=== PATIENT | female | born 1985 | race Caucasian/White ===

== ENCOUNTER → 2017-04-08 | Outpatient (CLI) | payer OTHER ==
[2017-04-08 15:55] LABS: URINE APPEARANCE CLEAR (CLEAR); URINE BILIRUBIN NEG (NEG); URINE COLOR YELLOW; URINE NITRITE POS (NEG); URINE PH 7.5 (4.5-7.5); URINE SPECIFIC GRAVITY 1.022 (1.000-1.030); UROBILINOGEN NEG (NEG)
[2017-04-08 16:08] LABS: MANUAL MICROSCOPIC REQUIRED? NO; REVIEW REQ? NO
== END | disposition home or self-care (01) ==
LOC: C.LABSPEC 13:12
PROVIDERS: ATTEND Obstetrics & Gynecology
DX: Z34.01 Encounter for supervision of normal first pregnancy, first trimester (principal)

== ENCOUNTER → 2017-04-14 | Outpatient (CLI) | payer OTHER ==
[2017-04-14 12:14] LABS: BASO % 0.1 %; BASO ABS # 0.01 K/uL (0-0.2); COMPLETE YES; EOS % 1.3 %; HEMATOCRIT 37.4 % (37-47); IG% 0.3 %; LYMPH % 23.5 %; LYMPH ABS # 1.82 K/uL (1.2-3.4); MEAN CELL VOLUME 86.2 fL (80-100); MEAN CORPUSCULAR HGB CONC 33.7 g/dl (32-36); MEAN PLATELET VOLUME 11.5 fL (7.4-10.4); MONO % 5.2 %; NEUT % 69.6 %; PLATELET COUNT 240 K/uL (130-400); RED BLOOD COUNT 4.34 M/uL (4.2-5.4); WHITE BLOOD COUNT 7.76 K/uL (4.8-10.8)
[2017-04-16 22:32] LABS: CHLAMYDIA TRACH RNA*** NOT DETECTED (NOT DETECTED); GC (NEIS GONORRHOEAE)RNA** NOT DETECTED (NOT DETECTED)
== END | disposition home or self-care (01) ==
LOC: C.LAB1850 10:13
PROVIDERS: ATTEND Obstetrics & Gynecology
DX: Z34.01 Encounter for supervision of normal first pregnancy, first trimester (principal)

== ENCOUNTER → 2017-06-25 | Outpatient (CLI) | payer OTHER | END | disposition home or self-care (01) | LOC: C.LABSPEC 17:39 | PROVIDERS: ATTEND Obstetrics & Gynecology | DX: O23.31 Infections of other parts of urinary tract in pregnancy, first trimester (principal); Z3A.00 Weeks of gestation of pregnancy not specified ==

== ENCOUNTER → 2017-08-13 | Outpatient (CLI) | payer OTHER ==
[2017-08-13 12:15] LABS: HEMATOCRIT 35.3 % (37-47); HEMOGLOBIN 11.6 g/dL (12.0-16.0)
== END | disposition home or self-care (01) ==
LOC: C.LAB1850 09:58
PROVIDERS: ATTEND Obstetrics & Gynecology
DX: Z34.03 Encounter for supervision of normal first pregnancy, third trimester (principal); Z3A.00 Weeks of gestation of pregnancy not specified

== ENCOUNTER → 2017-10-11 | Outpatient (CLI) | payer OTHER ==
[2017-10-11 17:32] LABS: HEMATOCRIT 36.1 % (37-47); HEMOGLOBIN 11.9 g/dL (12.0-16.0); MEAN CELL VOLUME 88.5 fL (80-100); MEAN CORPUSCULAR HEMOGLOBIN 29.2 pg (25-34); PLATELET COUNT 149 K/uL (130-400); RED CELL DISTRIBUTION WIDTH CV 14.4 % (11.5-14.5); RED CELL DISTRIBUTION WIDTH SD 46.8 fL (36.4-46.3); WHITE BLOOD COUNT 9.27 K/uL (4.8-10.8)
[2017-10-11 17:53] LABS: ALBUMIN 2.5 gm/dl (3.4-5.0); ALKALINE PHOSPHATASE 126 U/L (45-117); ALT/SGPT 12 U/L (12-78); AST/SGOT 8 U/L (15-37); TOTAL PROTEIN 6.4 gm/dl (6.4-8.2); URIC ACID 5.1 mg/dl (2.6-7.2)
== END | disposition home or self-care (01) ==
LOC: C.LAB 16:16
PROVIDERS: ATTEND Obstetrics & Gynecology
DX: O26.899 Other specified pregnancy related conditions, unspecified trimester (principal)

== ENCOUNTER 2017-10-15 17:20 | Outpatient (CLI) | payer OTHER ==
[2017-10-15] MEDS ORDERED: ACETAMINOPHEN 325 MG TAB PO PRN (18:15)
[2017-10-15 18:44] LABS: BASO % 0.1 %; BASO ABS # 0.01 K/uL (0-0.2); EOS % 0.9 %; EOS ABS # 0.08 K/uL (0-0.5); HEMATOCRIT 36.1 % (37-47); HEMOGLOBIN 12.2 g/dL (12.0-16.0); IG# 0.02 K/uL (0.00-0.02); LYMPH % 26.8 %; LYMPH ABS # 2.29 K/uL (1.2-3.4); MEAN CELL VOLUME 87.8 fL (80-100); MEAN CORPUSCULAR HEMOGLOBIN 29.7 pg (25-34); MEAN CORPUSCULAR HGB CONC 33.8 g/dl (32-36); MEAN PLATELET VOLUME 12.8 fL (7.4-10.4); MONO % 5.2 %; MONO ABS # 0.44 K/uL (0.11-0.59); NEUT % 66.8 %; NEUT ABS # 5.69 K/uL (1.4-6.5); PLATELET COUNT 138 K/uL (130-400); RED CELL DISTRIBUTION WIDTH CV 14.5 % (11.5-14.5); RED CELL DISTRIBUTION WIDTH SD 46.7 fL (36.4-46.3); WHITE BLOOD COUNT 8.53 K/uL (4.8-10.8)
[2017-10-15 19:10] LABS: ALBUMIN 2.6 gm/dl (3.4-5.0); ALT/SGPT 10 U/L (12-78); BLOOD UREA NITROGEN 12 mg/dl (7-18); CALCIUM 8.6 mg/dl (8.5-10.1); CARBON DIOXIDE 20 mmol/L (21-32); CREATININE 0.58 mg/dl (0.60-1.20); GLUCOSE 67 mg/dl (70-99); POTASSIUM 3.8 mmol/L (3.5-5.1); SODIUM 137 mmol/L (136-145)
[2017-10-15 19:13] LABS: ALKALINE PHOSPHATASE 137 U/L (45-117); AST/SGOT 7 U/L (15-37); TOTAL PROTEIN 6.7 gm/dl (6.4-8.2)
[2017-10-15] MEDS ORDERED: PATIENT'S ALLERGY INFO NEEDS ENTERED SCH (19:30)
[2017-10-15] MEDS ORDERED: SODIUM CHLORIDE 0.9% 1000ML 1,000 ML IV SCH (20:00)
== END 2017-10-15 20:09 | disposition home or self-care (01) ==
LOC: C.LD 17:20 → C.OPB 17:20
PROVIDERS: ATTEND Obstetrics & Gynecology
DX: O13.3 Gestational [pregnancy-induced] hypertension without significant proteinuria, third trimester (principal); O99.213 Obesity complicating pregnancy, third trimester; E66.9 Obesity, unspecified; Z22.330 Carrier of Group B streptococcus; Z3A.36 36 weeks gestation of pregnancy

== ENCOUNTER 2021-01-07 05:40 | Inpatient (IN) ==
--- NOTE | 2021-01-03 11:27 | PAT Medication Instructions ---
Medication Instructions Date of Service January 03, 2021 Home Medications prenat.vits,guru,chp-vbfi-ruils 1 tab PO QAM acetaminophen [Tylenol] 325 mg PO QID PRN aspirin [Aspir-81] 81 mg PO QAM ASK your surgeon for instructions aspirin [Aspir-81] 81 mg PO QAM DO NOT take the morning of surgery prenat.vits,guru,tib-rjeq-gjuxu 1 tab PO QAM acetaminophen [Tylenol] 325 mg PO QID PRN Other Notes NOTHING TO EAT OR DRINK AFTER MIDNIGHT. If you have any questions please call us at [phone] or [phone] or [phone] or [phone]
--- NOTE | 2021-01-04 10:12 | Anesthesiology Consultation ---
Date of Service January 04, 2021 Assessment & Plan (1) Encounter for pre-operative examination: COVID Status: As of 01/04 assessment, patient denies travel to endemic area, known exposure/sick contacts, or symptoms of COVID19. Patient advised to adhere to social distancing guidelines, wear a mask in public and avoid large crowds or unnecessary travel in the 2 weeks leading up to surgery. Preoperative COVID19 testing completed on 01/01/2021, results negative. Patient encouraged to b e extra cautious/conscientious with COVID precautions between COVID testing and surgery. Pt is not vaccinated for COVID. Chart Review Chart Review: Acceptable Risk for Surgery and Patient NOT seen in Pre Admission Testing Teaching & Discussion Instructed NPO after midnight before surgery, except medications with 15 cc of water. Medication instructions provided according to the PAT guidelines. History Surgery Operation Date: 01/07/21 07:30 Proposed Procedures p Section - Alyssa Cortes MD, FACOG Height/Weight Height: 5 ft 4 in Weight: 138.799 kg Allergies Allergy/AdvReac Type Severity Reaction Status Date / Time amoxicillin Allergy Unknown RASH Verified 01/04/21 09:11 Medications Home Medications Medication Instructions Recorded Confirmed Last Taken prenat.vits,guru,etd-osfq-xeewp 1 tab PO QAM 05/25/20 01/04/21 Unknown acetaminophen [Tylenol] 325 mg PO QID PRN 12/31/20 01/04/21 Unknown aspirin [Aspir-81] 81 mg PO QAM 12/31/20 01/04/21 Unknown Past Medical History Medical History Morbid obesity Preeclampsia aspirin for this > controlled at present Exercise / Class Metabolic Activity II 4-5 Yardwork/Stairs/Walk up hill (Some SOB but expected in gravid state, no chest pain) Past Family History Family History Mother Thyroid disease Anemia Brother Heart murmur Other Twin Past Surgical History Surgical History History of section x1 Hx of eye surgery for blocked tear ducts as child Past Anesthesia History No Hx of Anesthesia Complications and No Family Hx of Anesthesia Complications History of PONV No Hx of PONV and No Hx of Motion Sickness Social History Smoking Status: Never smoker Do You Dip or Chew Tobacco: No Hx Alcohol Use: No Hx Substance Use: No substance use type: does not use Review of Systems Pt denies any recent chest pain, shortness of breath, palpitations, cough, fever, URI, or uncontrolled acid reflux. Physical Exam Vital Signs BP: 128/80 P: 84bpm SPO2: 98% RA T: 98.3 F R: 16 ENMT Mouth: + macroglossia; no dental restorations, no chipped teeth and no loose teeth Thyromental Distance: > or= 3.5 Finger Breadths Mallampati Class: II Mouth / Teeth: 1. missing Neck normal visual inspection and + thick neck; neck extension not limited Respiratory normal respiratory effort, lungs clear to auscultation Cardiovascular RRR, no murmur, no edema
--- NOTE | 2021-01-06 11:31 | History & Physical Report ---
Date of Service January 06, 2021 EDC January 10 for repeat C/S Assessment & Plan (1) Previous delivery affecting , antepartum: Repeat section. The patient was counseled to the nature of the procedure including alternatives such as labor. Risks were discussed including bleeding infection injury to bowel bladder ureter vessels and even baby. The risks of internal organ injury were discussed as being higher with prior sections. Deep Vein Thrombosis, pulmonary embolus and breakdown of the incision discussed. Deep vein thrombosis pulmonary embolus hernia and failure of the incision to heal were discussed Patient verbalized understanding of this and was given ample time to ask questions History of Present Illness Primary Care Provider: Madi Curry Allergies Allergy/AdvReac Type Severity Reaction Status Date / Time amoxicillin Allergy Unknown RASH Verified 01/04/21 09:11 Home Medications Medication Instructions Recorded Confirmed Type prenat.vits,guru,dlo-jeoa-dujxr 1 tab PO QAM 05/25/20 01/04/21 History acetaminophen [Tylenol] 325 mg PO QID PRN 12/31/20 01/04/21 History aspirin [Aspir-81] 81 mg PO QAM 12/31/20 01/04/21 History Patient History Medical History Morbid obesity Preeclampsia aspirin for this > controlled at present Surgical History History of section x1 Hx of eye surgery for blocked tear ducts as child Family History Mother Thyroid disease Anemia Brother Heart murmur Other Twin Social History (Updated 05/25/20 @ 13:21 by Anitra Vargas) Smoking Status: Never smoker Second Hand Exposure: No; Hx Alcohol Use: No Hx Substance Use: No Preferred Language: Romansh Communication Ability: Effective Supply Clerk Required: No Beliefs That Will Affect Care: None marital status: marital status details: Russell (40) [phone] Current Living Situation: Spouse and Family Current Living Situation Comment: lives with spouse, son, 2 dogs, 1 cat, spouse to change litter. current occupational status: employed current occupation: dietary [employer] Feels Safe at Home: Yes Assistive Devices: Contacts Review of Systems as per Subjective / HPI Physical Exam Constitutional: WD/WN, vitals as above well developed and well nourished Respiratory: normal respiratory effort, lungs clear to auscultation normal respiratory effort Cardiovascular: RRR, no murmur, no edema Gastrointestinal (Abdomen): normal bowel sounds, soft, nontender, no hepatosplenomegaly Code Status & VTE Plan VTE Prophylaxis Plan VTE Prophylaxis will be ordered: Yes Coding Level of Care Code None Diagnoses Previous delivery affecting , antepartum O34.219
[2021-01-07] MEDS ORDERED: LACTATED RINGER'S 1,000 ML IV SCH ×4 (05:45→10:49)
[2021-01-07] MEDS ORDERED: SODIUM CHLORIDE 0.9% 250 ML IV PRN (05:48)
[2021-01-07] MEDS ORDERED: ceFAZolin 3,000 MG in DEXTROSE 5% 50 ML IV SCH (06:00)
[2021-01-07] MEDS ORDERED: CITRIC ACID/SODIUM CITRATE 15 ML UDC PO SCH ×2 (06:00)
[2021-01-07 06:31] LABS: Basophils # (auto) 0.01 K/uL (0-0.2); Basophils % (auto) 0.1 %; Eosinophils # (auto) 0.07 K/uL (0-0.5); Eosinophils % (auto) 0.9 %; Hematocrit (blood only) 35.9 % (37-47); Hemoglobin 11.7 g/dL (12.0-16.0); Immature Granulocytes # (auto) 0.03 K/uL (0.00-0.02); Immature Granulocytes % (auto) 0.4 %; Lymphocytes # (auto) 2.13 K/uL (1.2-3.4); Lymphocytes % (auto) 27.7 %; Mean Corpuscular Hemoglobin 29.5 pg (25-34); Mean Corpuscular Volume 90.7 fL (80-100); Mean Platelet Volume 11.8 fL (7.4-10.4); Monocytes # (auto) 0.52 K/uL (0.11-0.59); Monocytes % (auto) 6.8 %; Neutrophils # (auto) 4.94 K/uL (1.4-6.5); Neutrophils % (auto) 64.1 %; Platelet Count 201 K/uL (130-400); RDW Coefficient of Variation 14.2 % (11.5-14.5); RDW Standard Deviation 47.5 fL (36.4-46.3); Red Blood Count 3.96 M/uL (4.2-5.4)
[2021-01-07 06:47] LABS: Mean Corpuscular Hgb Conc 32.6 g/dL (32-36)
--- NOTE | 2021-01-07 07:06 | History & Physical Bridge Note ---
Date of Service January 07, 2021 History & Physical Bridge Note I have examined the patient, reviewed the History & Physical and in the interval since the performance of the History & Physical I have noted the following changes of clinical significance: no changes noted
[2021-01-07] MEDS ORDERED: MoRPHine SULFATE PF 1 MG/ML 10 ML AMP/VIAL INT SPINAL ONE (07:23)
[2021-01-07] MEDS ORDERED: ONDANSETRON INJ 2 MG/ML 2 ML VIAL IV PRN (07:23)
[2021-01-07] MEDS ORDERED: ePHEDrine sulfate 50 MG/ML AMP IV PRN (07:23)
[2021-01-07] MEDS ORDERED: KETOROLAC 30 MG/ML VIAL IV PRN ×2 (07:23→10:49)
[2021-01-07] MEDS ORDERED: diphenhydrAMINE 50 MG/ML VIAL IV PRN (07:23)
[2021-01-07] MEDS ORDERED: HYDROmorphone INJ 0.5 MG/0.5 ML SYR IV PRN (07:23)
[2021-01-07] MEDS ORDERED: NALOXONE HCL 1 MG in SODIUM CHLORIDE 0.9% 1000ML 1,000 ML IV PRN (07:23)
[2021-01-07] MEDS ORDERED: NALOXONE HCL 0.4 MG/1 ML VIAL/CARP IV PRN (07:23)
[2021-01-07] MEDS ORDERED: LACTATED RINGER'S 500 ML IV PRN (07:23)
[2021-01-07] MEDS ORDERED: NALOXONE HCL 0.08 MG in SYRINGE 1.8 ML IV PRN (07:23)
[2021-01-07] MEDS ORDERED: SODIUM CHLORIDE 0.9% 1000ML 1,000 ML IV SCH (07:30)
[2021-01-07] MEDS ORDERED: DC INTRASPINAL MORPHINE SCH (07:30)
[2021-01-07] MEDS ORDERED: NO NARCOTICS OR SEDATIVES SCH (07:30)
[2021-01-07] MEDS ORDERED: MoRPHine SULFATE PF 1 MG/ML 10 ML AMP/VIAL ONE (07:35)
[2021-01-07] MEDS ORDERED: fentaNYL citrate 100 MCG/2 ML VIAL ONE (07:36)
[2021-01-07] MEDS ORDERED: OXYTOCIN 10 UNITS/ML VIAL ONE ×2 (07:36→08:33)
[2021-01-07] MEDS ORDERED: PHENYLEPHRINE 100MCG/ML 5ML SYR ONE (08:04)
[2021-01-07] MEDS ORDERED: ONDANSETRON INJ 2 MG/ML 2 ML VIAL ONE (08:15)
[2021-01-07] MEDS ORDERED: ePHEDrine sulfate 50 MG/ML SYR ONE (08:16)
[2021-01-07 09:08] LABS: Base Excess Cord Venous Blood -3.5 mEq/L (-7.7-1.9); Cord Venous Blood HCO3 23 mmol/L (18.4-26.8); Cord Venous Blood PCO2 49 mmHg (30.4-57.2); Cord Venous Blood PO2 18 mmHg (14.1-43.3)
[2021-01-07 09:10] LABS: Base Excess Cord Arterial Bld -3.1 mEq/L (-9-1.8); CO2 Cord Arterial Blood 60 mmHg (39.1-73.5); HCO3 Cord Arterial Blood 26 mmol/L (19.7-28.5); O2 Saturation Cord Venous Bld < 60.0 % (<68); PO2 Cord Arterial Blood 13 mmHg (4.1-31.7); pH Cord Arterial Blood 7.25 (7.1-7.38)
[2021-01-07 09:13] LABS: Oxygen Sat Cord Arterial Blood < 60.0 % (<60)
--- NOTE | 2021-01-07 09:14 | Operative Report ---
PG Post Operative Report Pre & Post Diagnosis Operation Date: 01/07/21 07:30 Pre-Op Diagnosis: Previous section Completed 39 weeks gestation Post-Op Diagnosis: Same I identified the patient and participated in the time-out.: Yes Procedure Operation Date: 01/07/21 07:30 Actual Procedures p Section in LD; Repeat lower uterine transverse section for the of a live female at 0831 in OR #3(Bilateral) - Alyssa Cortes MD, FACOG Surgeon Alyssa Cortes MD, FACOG M[facility] Tiler Dr. Page Estimated Blood Loss 500 Findings Consistent with Post-Op Diagnosis Specimens cord blood, gases Description of Procedure Regional anesthetic was given by anesthesia patient had a Garcia catheter inserted by nursing patient was prepped and draped in supine position with a leftward tilt preoperative antibiotics were given timeout performed Pickups with teeth were used to test the skin site and it was found adequate for incision scalpel used to make a Pfannenstiel incision cutting down through subcutaneous fat through the fascia fascia was then dissected laterally with the curved Hernandez's fascia was released superiorly and inferiorly from the rectus muscles with the curved Hernandez scissors, It should be noted there were dense adhesions of the omentum to the posterior aspect of the rectus muscles and peritoneum these were carefully methodically dissected away with electrosurgery once the adhesions were fully away I was able to displace the rectum because of limited space I made a small incision on the rectus muscles both on left and right sides to allow more room for delivery of the baby. At this stage we gained exposure bladder retractor placed Metzenbaums used to dissect away the bladder flap low segment transverse incision made on the uterus with scalpel entry was done bluntly with the scouring machine operator's finger hysterotomy incision extended with the scouring machine operator's finger in the usual fashion baby was delivered then by flexion of the head, we did require the use of a vacuum to deliver the head and this was done easily with no pop offs and with little force and pressure from the acquisitions assistant on the abdomen mouth and then nares were suctioned baby was then delivered fully without difficulty without excessive force live vigorous cord clamped and cut cord gases obtained cord blood obtained placenta removed manually within ensured all placenta removed with a moist lap sponge uterus exteriorized IV Pitocin had been started by anesthesia and uterine tone improved. The uterus was closed in 2 layers first layer and 0 Monocryl running locked second layer 0 Monocryl nonlocked after generous irrigation and suction of the cul-de-sac and bladder flap regions hemostasis was excellent uterus was placed back in the peritoneal cavity and hemostasis was excellent . Should be noted we did a careful inspection of the omentum for any bleeders and none were found a small section of omentum was excised as it was somewhat tenuous from dissection this was done by using a hemostat and tying with 0 Vicryl and then cutting off the section omentum then placed back in the peritoneal cavity at the rectus muscle was then repaired in the usual fashion with 0 Vicryl , hen trectus muscles were inspected and found to be dry fascia closed with 0 Vicryl subcutaneous fat closed with 3-0 Vicryl prior to this subcutaneous fat was irrigated skin closed with 4-0 subcuticular Monocryl incision Steri-Stripped urine was clear at the end of the procedure bere dressing applied I attest to the content of the Intraoperative Record and any orders documented therein. Any exceptions are noted below. Procedure Pre-op/Post-op diagnoses: Pre-Op/Post-Op Diagnoses Operation Date: 01/07/21 07:30 Pre-Op Diagnosis: Previous section Completed 39 weeks gestation Post-Op Diagnosis: Same Procedure: Procedures Operation Date: 01/07/21 07:30 Actual Procedures Side Surgeon p Section in LD; Repeat lower uterine transverse section for the of a live female at 0831 in OR #3 Bilateral Alyssa mehta MD, FACOG
--- NOTE | 2021-01-07 10:18 | Anesthesiology Progress Note ---
Date of Service January 07, 2021 Anesthesia Post Procedure Vital Signs Vital Signs: Temp Pulse Resp BP Pulse Ox 01/07/21 10:16 69 116/56 L 01/07/21 10:14 86 97 01/07/21 10:09 87 95 01/07/21 10:05 77 117/65 01/07/21 10:04 77 96 01/07/21 09:59 81 95 01/07/21 09:55 87 111/65 01/07/21 09:54 89 95 01/07/21 09:49 83 96 01/07/21 09:45 80 122/63 01/07/21 09:44 73 98 01/07/21 09:39 65 96 01/07/21 09:35 75 124/58 L 01/07/21 09:34 76 94 01/07/21 09:29 73 97 01/07/21 09:26 78 94 01/07/21 09:25 36.5 C 16 01/07/21 09:24 69 123/63 99 01/07/21 07:45 85 99 01/07/21 07:40 77 97 01/07/21 07:35 81 98 01/07/21 07:30 82 98 01/07/21 07:25 81 99 01/07/21 07:09 36.6 C 92 H 18 130/68 98 01/07/21 07:06 36.6 C 01/07/21 07:05 36.6 C 18 01/07/21 06:17 78 130/74 01/07/21 06:08 36.7 C 18 Transfer of Care Handoff Completed per policy Notes Mental Status: alert / awake / arousable Patient Amnestic to Procedure: Yes Nausea / Vomiting: adequately controlled Pain: adequately controlled Airway Patency, RR, SpO2: stable & adequate BP & HR: stable & adequate Hydration State: stable & adequate Neuraxial Anesthesia: was administered and sensory block is resolving Anesthetic Complications: no major complications apparent and Pt Satisfied with anesthetic care
[2021-01-07] MEDS ORDERED: diphenhydrAMINE Capsule 25 MG CAP PO PRN (10:49)
[2021-01-07] MEDS ORDERED: MAGNESIUM HYDROXIDE SUSP 30 ML UDC PO PRN (10:49)
[2021-01-07] MEDS ORDERED: BENZOCAINE 20% AER SPR 82.5 GM CAN EXT PRN (10:49)
[2021-01-07] MEDS ORDERED: SENNA 8.6 MG TAB PO PRN (10:49)
[2021-01-07] MEDS ORDERED: HYDROCORTISONE ACETATE 25 MG SUPP PR PRN (10:49)
[2021-01-07] MEDS ORDERED: SUPERCREAM 0.870% 15 GM JAR EXT PRN (10:49)
[2021-01-07] MEDS ORDERED: DIPHTHERIA/TETANUS/PERTUSSIS 0.5 ML SYR/VIAL IM ONE (10:49)
[2021-01-07] MEDS: OXYTOCIN 20 UNITS in LACTATED RINGER'S 1,000 ML IV SCH ×2 (11:52→20:13)
[2021-01-07] MEDS: SIMETHICONE 80 MG CHEW PO SCH ×3 (14:00→20:13)
[2021-01-07] MEDS: DOCUSATE SODIUM 100 MG CAP PO SCH (20:13)
[2021-01-08] MEDS ORDERED: PROMETHAZINE HCL 25 MG in SODIUM CHLORIDE 0.9% 50 ML IV PRN (01:23)
[2021-01-08] MEDS ORDERED: ONDANSETRON INJ 2 MG/ML 2 ML VIAL IV PRN (01:23)
[2021-01-08] MEDS ORDERED: diphenhydrAMINE 50 MG/ML VIAL IV PRN (01:23)
[2021-01-08] MEDS ORDERED: MEPERIDINE HCL 50 MG/ML CARP IV PRN (01:23)
--- NOTE | 2021-01-08 06:24 | Obstetrical Progress Note ---
Date of Service <Yuriy Aldana MD - Last Filed: 01/08/21 07:17> January 08, 2021 Assessment & Plan <Yuriy Aldana MD - Last Filed: 01/08/21 07:17> (1) S/P repeat low transverse : Tonie is a 35 y/o female who is POD #1 following rLTCS at 39 WGA - Feels well today overall -- no complications. VSS. - Pain well controlled with oral analgesics - Routine postoperative care -- promote OOB, ambulation, voiding w/o Garcia, diet progression as tolerated - After discharge will have [address] Cortes Subjective <Yuriy Aldana MD - Last Filed: 01/08/21 07:17> Tonie is a 35 y/o female who is POD #1 following rLTCS at 39 WGA. She reports feeling well overall this morning. Endorses mild abdominal cramping well managed on analgesics. Going to attempt to void now since Garcia has been removed. Tolerating meals overnight and able to ambulate some. Not yet passing gas. Has some persistent lochia with some improvement this morning. Currently breast feeding. Review of Systems Denies fever, chills, sweats Denies shortness of breath, difficulty breathing, chest pain, palpitations, chest pressure. Denies breast pain. Denies dysuria. Denies headache or changes in vision. Physical Exam <Yuriy Aldana MD - Last Filed: 01/08/21 07:17> General: Alert, oriented. No acute distress. Cardiac: Regular rate and rhythm, no murmurs/rubs/gallops. Respiratory: Clear to auscultation bilaterally a/p, no wheezes/rales/rhonchi. No increased work of breathing. Symmetrical chest rise. No respiratory distress. Abdomen: Soft, nontender, nondistended. Bowel sounds present. Uterus: Uterine fundus firm, palpable 2-3 cm below umbilicus. Surgical scar adelfo an and healing well. Lower Extremities: No lower extremity edema or swelling. No deep calf pain. Tong's negative bilaterally. Results & Data ([facility]) <Yuriy Aldana MD - Last Filed: 01/08/21 07:17> Vital Signs (Past 12 Hours) Vital Signs Temp Pulse Resp BP Pulse Ox 06/15/21 03:00 36.5 C 78 18 98/66 L 98 01/08/21 01:45 16 96 01/08/21 00:45 16 97 01/07/21 23:45 36.5 C 77 17 104/67 98 01/07/21 22:30 20 99 01/07/21 21:40 20 100 01/07/21 20:40 18 99 01/07/21 19:40 37.5 C 83 18 110/74 100 01/07/21 18:40 20 100 <Alyssa Cortes MD, FACOG - Last Filed: 01/08/21 07:34> Co-Signing Physician Notes Resident Physician Supervision Note: I was present with Dr. Aldana during the history and exam. I discussed the case with the resident and agree with the findings and plan as documented in the note. Any exceptions or clarifications are listed here: [None] Documented By: Alyssa Cortes MD, FACOG Resident Activity Tracking <Yuriy Aldana MD - Last Filed: 01/08/21 07:17> Resident Involvement: Resident Care Provided Care Provided: Adult Hospital Medicine and OB Delivery
[2021-01-08 06:31] LABS: Basophils # (auto) 0.01 K/uL (0-0.2); Basophils % (auto) 0.1 %; Eosinophils % (auto) 1.2 %; Immature Granulocytes # (auto) 0.02 K/uL (0.00-0.02); Immature Granulocytes % (auto) 0.2 %; Lymphocytes % (auto) 24.3 %; Mean Corpuscular Hemoglobin 29.7 pg (25-34); Mean Corpuscular Hgb Conc 32.4 g/dL (32-36); Mean Corpuscular Volume 91.9 fL (80-100); Monocytes # (auto) 0.57 K/uL (0.11-0.59); Monocytes % (auto) 6.6 %; Neutrophils # (auto) 5.83 K/uL (1.4-6.5); Neutrophils % (auto) 67.6 %; Platelet Count 176 K/uL (130-400); RDW Coefficient of Variation 14.4 % (11.5-14.5); RDW Standard Deviation 48.2 fL (36.4-46.3); White Blood Count 8.63 K/uL (4.8-10.8)
[2021-01-08] MEDS: PRENATAL VITAMIN 1 TAB PO SCH (07:44)
[2021-01-08] MEDS: SIMETHICONE 80 MG CHEW PO SCH ×4 (07:44→21:46)
[2021-01-08] MEDS: IBUPROFEN 600 MG TAB PO PRN ×4 (07:44→21:47)
[2021-01-08] MEDS: oxyCODONE/ACETAMINOPHEN 5mg/325mg TAB PO PRN ×4 (07:44→21:47)
[2021-01-08] MEDS: DOCUSATE SODIUM 100 MG CAP PO SCH ×2 (07:44→21:46)
--- NOTE | 2021-01-08 19:27 | Anesthesiology Progress Note ---
Date of Service January 08, 2021 Anesthesia Post Procedure Vital Signs Vital Signs: Temp Pulse Resp BP Pulse Ox 01/08/21 16:50 37.0 C 85 18 119/74 01/08/21 07:40 36.7 C 70 18 116/77 100 01/08/21 03:00 36.5 C 78 18 98/66 L 98 01/08/21 01:45 16 96 01/08/21 00:45 16 97 01/07/21 23:45 36.5 C 77 17 104/67 98 01/07/21 22:30 20 99 01/07/21 21:40 20 100 01/07/21 20:40 18 99 01/07/21 19:40 37.5 C 83 18 110/74 100 Pain Intensity Lower Abdomen: Pain Intensity: 2 Transfer of Care Handoff Completed per policy Notes Mental Status: alert / awake / arousable and participated in evaluation Nausea / Vomiting: adequately controlled Pain: adequately controlled Airway Patency, RR, SpO2: stable & adequate BP & HR: stable & adequate Hydration State: stable & adequate Neuraxial Anesthesia: was administered and sensory block resolved Anesthetic Complications: no major complications apparent and Pt Satisfied with anesthetic care
[2021-01-08] MEDS ORDERED: bisacodyL 5 MG TABEC PO SCH (20:00)
[2021-01-09] MEDS: IBUPROFEN 600 MG TAB PO PRN ×2 (02:06→07:25)
[2021-01-09] MEDS: oxyCODONE/ACETAMINOPHEN 5mg/325mg TAB PO PRN ×2 (02:07→07:25)
--- NOTE | 2021-01-09 05:37 | Obstetrical Progress Note ---
Date of Service <Yuriy Aldana MD - Last Filed: 01/09/21 06:32> January 09, 2021 Assessment & Plan <Yuriy Aldana MD - Last Filed: 01/09/21 06:32> (1) S/P repeat low transverse : Tonie is a 35 y/o female who is POD #2 following rLTCS at 39 WGA. notable for morbid obesity, GBS+ status, and history of pre-eclampsia in PRIOR . - Feels well today overall -- no complications. VSS. - Pain well controlled with oral analgesics - Routine postoperative care -- promote OOB, ambulation, diet - Anticipate d/c today - After discharge will have [address] Cortes Subjective <Yuriy Aldana MD - Last Filed: 01/09/21 06:32> Tonie is a 35 y/o female who is POD #2 following rLTCS at 39 WGA. She reports feeling well overall this morning. Endorses mild abdominal cramping well managed on analgesics. Voiding without difficulty. Tolerating meals overnight and able to ambulate some. Passing gas. Has some persistent lochia with some improvement this morning. Currently breast feeding. Review of Systems Denies fever, chills, sweats Denies shortness of breath, difficulty breathing, chest pain, palpitations, chest pressure. Denies breast pain. Denies dysuria. Denies headache or changes in vision. Physical Exam <Yuriy Aldana MD - Last Filed: 01/09/21 06:32> General: Alert, oriented. No acute distress. Cardiac: Regular rate and rhythm, no murmurs/rubs/gallops. Respiratory: Clear to auscultation bilaterally a/p, no wheezes/rales/rhonchi. No increased work of breathing. Symmetrical chest rise. No respiratory distress. Abdomen: Soft, nontender, nondistended. Bowel sounds present. Uterus: Uterine fundus firm, palpable 2-3 cm below umbilicus. Surgical scar clean and healing well. Lower Extremities: No lower extremity edema or swelling. No deep calf pain. Tong's negative bilaterally. Results & Data ([facility]) <Yuriy Aldana MD - Last Filed: 01/09/21 06:32> Vital Signs (Past 12 Hours) Vital Signs Temp Pulse Resp BP Pulse Ox 01/08/21 23:25 36.8 C 86 18 119/81 100 01/08/21 19:30 36.5 C 72 18 115/74 100 <Jolanta Garcia MD - Last Filed: 01/09/21 09:18> Co-Signing Physician Notes Resident Physician Supervision Note: I interviewed and examined the patient. Discussed with Dr. Aldana and agree with findings and plan as documented in the note. Any exceptions or clarifications are listed here: POD2 s/p repeat CS. Stable for d/c home today Documented By: Jolanta Garcia MD Resident Activity Tracking <Yuriy Aldana MD - Last Filed: 01/09/21 06:32> Resident Involvement: Resident Care Provided Care Provided: Adult Hospital Medicine and OB Delivery
[2021-01-09 06:53] LABS: Hematocrit (blood only) 33.2 % (37-47); Hemoglobin 10.8 g/dL (12.0-16.0)
[2021-01-09] MEDS: DOCUSATE SODIUM 100 MG CAP PO SCH (07:26)
[2021-01-09] MEDS: SIMETHICONE 80 MG CHEW PO SCH (07:26)
[2021-01-09] MEDS: PRENATAL VITAMIN 1 TAB PO SCH (07:26)
[2021-01-09] MEDS ORDERED: bisacodyL 10 MG SUPP PR PRN (09:08)
--- NOTE | 2021-01-14 14:51 | Discharge Summary ---
Date of Service January 14, 2021 Admission Exam (Per Admitting) Constitutional WD/WN, vitals as above well developed and well nourished Respiratory normal respiratory effort, lungs clear to auscultation normal respiratory effort Cardiovascular RRR, no murmur, no edema Gastrointestinal (Abdomen) normal bowel sounds, soft, nontender, no hepatosplenomegaly Discharge Data Consultations 01/07/21 05:43 Consult Anesthesiology Stat Procedures Performed Operation Date: 01/07/21 07:30 Actual Procedures p Section in LD; Repeat lower uterine transverse section for the of a live female at 0831 in OR #3(Bilateral) - Alyssa Cortes MD, [facility] Course (1) Previous delivery affecting , antepartum: Repeat section. The patient was counseled to the nature of the procedure including alternatives such as labor. Risks were discussed including bleeding infection injury to bowel bladder ureter vessels and even baby. The risks of internal organ injury were discussed as being higher with prior sections. Deep Vein Thrombosis, pulmonary embolus and breakdown of the incision discussed. Deep vein thrombosis pulmonary embolus hernia and failure of the incision to heal were discussed Patient verbalized understanding of this and was given ample time to ask questions Supervising Physician Co-Signing Physician Notes Resident Physician Supervision Note: I interviewed and examined the patient. Discussed with Dr. Aldana and agree with findings and plan as documented in the note. Any exceptions or clarifications are listed here: POD2 s/p repeat CS. Stable for d/c home today Documented By: Jolanta Garcia MD Coding Level of Care Code None Diagnoses Previous delivery affecting , antepartum O34.219
== END 2021-01-09 13:35 | disposition home or self-care (01) | DRG 788 ==
LOC: 4S1 05:40 → EDSTATUS 07:30 → 4S2 11:55